=== PATIENT | female | born 1955 | race American Indian/Alaskan Native ===

== ENCOUNTER 2021-04-02 06:38 | Day surgery (SDC) | payer MEDICARE ==
[2021-04-02 07:54] LABS: Blood Urea Nitrogen 20 mg/dL (7-17); Calcium 8.7 mg/dL (8.4-10.2); Hemolysis Index 5
[2021-04-02 08:01] LABS: Basophils # (Auto) 0.1 K/mm3 (0.0-0.1); Basophils % (Auto) 1.2 % (0.0-1.8); Eosinophils # (Auto) 0.3 K/mm3 (0.0-0.4); Hematocrit 38.4 % (30.3-42.9); Hemoglobin 11.9 gm/dl (10.1-14.3); Lymphocytes # (Auto) 1.5 K/mm3 (1.2-5.4); Lymphocytes % (Auto) 35.1 % (13.4-35.0); Mean Corpuscular HGB Conc 31 % (30-34); Mean Corpuscular Volume 82 fl (79-97); Monocytes # (Auto) 0.5 K/mm3 (0.0-0.8); Monocytes % (Auto) 11.9 % (0.0-7.3); Platelet Count 239 K/mm3 (140-440); Red Blood Count 4.69 M/mm3 (3.65-5.03); Red Cell Distribution Width 15.4 % (13.2-15.2)
[2021-04-02 08:05] LABS: INR 0.81 (0.87-1.13)
[2021-04-02 08:06] LABS: Partial Thromboplastin Time 27.5 Sec. (24.2-36.6)
[2021-04-02 08:18] LABS: BUN/Creatinine Ratio 29
[2021-04-02] MEDS ORDERED: LIDOCAINE (2%) 20 MG/1 ML VIAL 20 ML MDV INFILTRATI ONE (08:25)
[2021-04-02] MEDS ORDERED: VERAPAMIL 5 MG/2 ML INJ ONE (08:25)
[2021-04-02] MEDS ORDERED: HEPARIN/NS 5000 UNIT/500ML 1,000 ML IR ONE (08:25)
[2021-04-02] MEDS ORDERED: HEPARIN 10,000 UNITS/10 ML VIAL ONE (08:25)
[2021-04-02] MEDS ORDERED: NITROGLYCERIN SYRINGE 3 ML ONE (08:26)
[2021-04-02] MEDS ORDERED: MIDAZOLAM 2 MG/2 ML INJ ONE (08:27)
[2021-04-02] MEDS ORDERED: fentaNYL 100 MCG/2 ML INJ ONE (08:27)
[2021-04-02] MEDS: SODIUM CHLORIDE 0.9% 500 ML 500 ML IV SCH ×2 (08:51→09:11)
--- NOTE | 2021-04-02 10:31 | Cardiac Catherization Report ---
DATE OF PROCEDURE: 04/02/2021 LEFT AND RIGHT HEART CATHETERIZATION INDICATION: Shortness of breath, pulmonary hypertension by 2D echocardiogram. PROCEDURES PERFORMED: 1. Selective left coronary angiography. 2. Selective right coronary angiography. 3. Left ventriculography. 4. Right heart catheterization with hemodynamic measurement and oxygen saturation run. DESCRIPTION OF PROCEDURE: After obtaining written consent, the patient was draped using sterile technique, 2% lidocaine was injected into the right wrist. A 6-[place] vascular sheath was inserted into the right radial artery. A 6-[place] JL3.5 catheter was used to selectively engage the left coronary artery. A 6-[place] JR4 catheter was used to selectively engage the right coronary artery. A 6-[place] JR4 catheter was used to hand inject the left ventriculogram. No complications occurred during the procedure. Hemostasis was achieved at the end of the procedure using manual pressure. Using a micropuncture needle, a 6-[place] vascular sheath was inserted into the right common femoral vein. A 6-[place]-Ana catheter was used to measure right sided hemodynamics and performed an oxygen saturation run. Hemostasis was achieved at the end of the procedure using manual pressure. ESTIMATED BLOOD LOSS: Minimal. SPECIMEN REMOVED: None. COMPLICATIONS: None. Physician/patient [id number] sedation start time 9:11 a.m. Physician, the patient [id number] sedation stop time is 9:42 a.m. Total sedation time was 31 minutes. FINDINGS: HEMODYNAMICS: 1. Aortic pressure is 144/77. 2. LV systolic pressure 144 mmHg. 3. LV end-diastolic pressure 21 mmHg. 4. Mean right atrial pressure 17 mmHg. 5. Right ventricular systolic pressure 85 mmHg. 6. Right ventricular end-diastolic pressure 20 mmHg. 7. Pulmonary artery pressure is 80/32/51. 8. Mean pulmonary capillary wedge pressure was 19 mmHg. 8. The [place] cardiac output was 6.9 liters per minute. 9. [place] cardiac index 3.19 liters per minute per meter squared. 10. Transpulmonary gradient calculated at 32 mmHg. 11. Pulmonary vascular resistance calculated at 4.45 Nelson units. 12. Diastolic pressure gradient calculated at 13 mmHg. 13. PA saturation was 69%. 14. Right ventricular saturation 71%. 15. Right atrial saturation 70%. 16. Aortic saturation 94%. Cardiac structures, the left ventricle is normal in size and systolic function. The left ventricular ejection fraction is estimated at 60% with normal wall motion. CORONARY ANATOMY: 1. This is a right dominant circulation. 2. The left main is angiographically normal. 3. The LAD has evidence of a 40% focal stenosis in the mid segment, otherwise angiographically normal. 4. The left circumflex artery is a small caliber vessel with mild diffuse nonobstructive coronary artery disease. 5. Ramus intermedius is a moderate size caliber vessel with mild diffuse nonobstructive coronary artery disease. 6. The right coronary artery has evidence of a proximal focal 40% stenosis, otherwise mild nonobstructive diffuse coronary artery disease. IMPRESSION: 1. Mild to moderate nonobstructive coronary artery disease involving the LAD and the proximal right coronary artery. 2. Normal left ventricular size and systolic function. 3. Elevated transpulmonary gradient of 32 mmHg, pulmonary vascular resistance of 4.45 Wood units, diastolic pressure gradient of 13 mmHg and the mean pulmonary artery pressure of 51 mmHg. The mean pulmonary capillary wedge pressure is 19 mmHg. 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 4. Normal cardiac output with a cardiac index of 3.29 liters per minute per meter square. 5. No evidence of an intracardiac shunt. RECOMMENDATIONS: 1. Medical therapy for nonobstructive coronary artery disease. 2. Initiation of pulmonary vasodilator therapy for precapillary pulmonary arterial hypertension. TID: [id number] RECEIPT: [id number] BAL
[2021-04-02 12:15] VITALS: BP 147/70
--- NOTE | 2021-04-04 10:08 | Electrocardiograph Report ---
[facility] Test Date: 2021-04-02 Test Time: 08:00:51 Pat Name: KATHY ZAZUETA Department: Room: Gender: F Wellness Specialist: FANI : 1955 Requested By: KATE HESS Order Number: [id number] Reading MD: Niya Mei Measurements Intervals [place] Rate: 62 P: 62 LA: 219 QRS: 26 QRSD: 103 T: 1 QT: 460 QTc: 468 Interpretive Statements Sinus rhythm Borderline prolonged LA interval No previous ECG available for comparison Electronically Signed On 04-04-2021 10:08:29 EST by Niya Mei
== END 2021-04-02 13:00 | disposition home or self-care (01) ==
LOC: CATHLABREC 06:38
PROVIDERS: ATTEND Internal Medicine
DX: R06.02 Shortness of breath (principal); I27.0 Primary pulmonary hypertension; I25.10 Atherosclerotic heart disease of native coronary artery without angina pectoris; E78.00 Pure hypercholesterolemia, unspecified; Z88.5 Allergy status to narcotic agent; M19.90 Unspecified osteoarthritis, unspecified site; Z79.82 Long term (current) use of aspirin; Z79.899 Other long term (current) drug therapy; Z90.710 Acquired absence of both cervix and uterus; Z96.641 Presence of right artificial hip joint; Z96.652 Presence of left artificial knee joint; Z98.890 Other specified postprocedural states
CPT/HCPCS: 36415; 80048; 85025; 85610; 85730; 93005; 93010; 93460; 99156; 99157; C1894; J1644; J1815; J2250; J3010; J3490; J7040; Q9967